=== PATIENT | male | born 1955 | race African-American/Black ===

== ENCOUNTER 2016-06-13 10:47 | Emergency (ER) | payer MEDICAID ==
[~2016-06-13] VITALS: Ht 185.4 cm; Wt 120.5 kg
[~2016-06-13 10:47] MED LIST: ALBU8.5H IH; FOLI1 PO; HYDR25TA PO; PROP80SR PO
[2016-06-13] MEDS ORDERED: ATOR20TA86 PO (10:59)
[2016-06-13 12:45] LABS: INFLUENZA TYPE B NEGATIVE FOR TYPE B (NEGATIVE)
[2016-06-13] MEDS ORDERED: OSELTAMIVIR PHOSPHATE 75 MG CAPSULE PO ONE (13:00)
[2016-06-13] MEDS ORDERED: BENZONATATE 100 MG CAPSULE PO ONE (13:00)
[2016-06-13 14:17] VITALS: BP 128/76
== END 2016-06-13 14:21 | disposition home or self-care (01) ==
LOC: EMS 10:47
DX: J11.1 Influenza due to unidentified influenza virus with other respiratory manifestations (principal); R04.2 Hemoptysis; I11.9 Hypertensive heart disease without heart failure; E78.00 Pure hypercholesterolemia, unspecified; F17.210 Nicotine dependence, cigarettes, uncomplicated
CPT/HCPCS: 87804; 99285